=== PATIENT | female | born 1965 | race Caucasian/White ===

== ENCOUNTER → 2024-09-18 12:43 | Outpatient (REF) | payer OTHER, SELFPAY | LOC: HWRAD 12:43 | PROVIDERS: ATTENDING PHYSICIAN Family Medicine | DX: E04.9 Nontoxic goiter, unspecified (principal) | CPT/HCPCS: 76536 ==

== ENCOUNTER → 2024-11-06 08:24 | Outpatient (REF) | payer OTHER, SELFPAY ==
[2024-11-06 08:40] VITALS: BP 116/97; BP_SYST 77
== END ==
LOC: RADI 08:24
PROVIDERS: ATTENDING PHYSICIAN Otolaryngology; FAMILY PHYSICIAN Family Medicine
DX: E04.1 Nontoxic single thyroid nodule (principal)
CPT/HCPCS: 88173; 10005